=== PATIENT | male | born 1945 | race Caucasian/White ===

== ENCOUNTER 2018-01-10 15:33 | Observation (INO) | payer OTHER ==
[~2018-01-10] VITALS: Ht 182.9 cm; Wt 69.3 kg
[~2018-01-10 15:33] MED LIST: Aspirin EC325 MG PO; Micro-K10 MEQ; Prilosec Otc20 MG
[2018-01-10 15:48] LABS: BASOPHILS ABSOLUTE AUTO 0.04 K/mm3 (0.00-0.23); BASOPHILS PERCENT AUTO 1 % (0-2); EOSINOPHILS ABSOLUTE AUTO 0.22 K/mm3 (0.00-0.68); EOSINOPHILS PERCENT AUTO 3 % (0-6); Hematocrit 42.4 % (37.0-53.0); Hemoglobin 14.4 g/dL (13.5-17.5); IMMATURE GRAN ABSOLUTE AUTO 0.02 K/mm3 (0.00-0.10); IMMATURE GRAN PERCENT AUTO 0 % (0-1); LYMPHOCYTES ABSOLUTE AUTO 1.42 K/mm3 (0.84-5.20); LYMPHOCYTES PERCENT AUTO 17 % (21-46); MONOCYTES ABSOLUTE AUTO 0.57 K/mm3 (0.16-1.47); MONOCYTES PERCENT AUTO 7 % (4-13); Mean Corpuscular HGB 31.1 pg (26.0-34.0); Mean Corpuscular Volume 92 fL (80-100); Mean Platelet Volume 8.3 fL (9.1-12.4); NEUTROPHILS ABSOLUTE AUTO 6.24 K/mm3 (1.96-9.15); NEUTROPHILS PERCENT AUTO 73 % (41-73); Platelet Count 351 K/mm3 (150-400); RDW Coefficient Variation 12.5 % (11.7-14.2); RDW Standard Deviation 41.7 fL (35.1-46.3); Red Blood Cell Count 4.63 M/mm3 (4.30-5.90); White Blood Cell Count 8.51 K/mm3 (4.00-11.30)
[2018-01-10 16:03] LABS: Alanine Aminotransfer (ALT/SGP 18 U/L (12-78); Albumin, Blood 3.3 g/dL (3.4-5.0); Albumin/Globulin Ratio 0.8 (0.8-1.8); Alk Phos 134 U/L (50-136); Anion Gap 7 mmol/L (6-16); Aspartate Aminotrans (AST/SGOT 20 U/L (12-37); Bilirubin, Total 0.2 mg/dL (0.1-1.0); Blood Urea Nitrogen 13 mg/dL (8-24); Bun/Creatinine Ratio 17.4 (12.0-20.0); CO2, Blood 27 mmol/L (21-32); Calcium, Blood 8.8 mg/dL (8.5-10.1); Chloride, Blood 105 mmol/L (98-108); Creatinine, Blood 0.75 mg/dL (0.60-1.20); Globulin, Blood 4.4 g/dL (2.2-4.0); Glomerular Filtration Rate >60 (60-); Glucose, Blood 183 mg/dL (70-99); International Normalized Ratio 1.01; Potassium, Blood 3.9 mmol/L (3.5-5.5); Prothrombin Time Results 10.4 Sec (9.7-11.5); Sodium, Blood 139 mmol/L (136-145); Total Protein, Blood 7.7 g/dL (6.4-8.2)
[2018-01-10] MEDS ORDERED: ASCO500 PO (17:25)
[2018-01-11] MEDS ORDERED: ATOR40TA PO (11:56)
[2018-01-11] MEDS ORDERED: CLOP75 PO (11:57)
[2018-01-11] MEDS ORDERED: CHLO25B PO (11:57)
== END 2018-01-11 12:47 | disposition home or self-care (01) ==
LOC: ER 15:33 → MEDS 15:34 → ENPENDDIS 01-11 11:33 → MEDS 01-11 12:47
PROVIDERS: Emergency Medicine
DX: I63.9 Cerebral infarction, unspecified (principal); G45.9 Transient cerebral ischemic attack, unspecified; I10 Essential (primary) hypertension; F19.10 Other psychoactive substance abuse, uncomplicated; Z79.82 Long term (current) use of aspirin; Z79.899 Other long term (current) drug therapy
CPT/HCPCS: 36415; 70450; 80053; 82947; 85025; 85610; 93005; 93010; 93306; 93880; 96372; 97162; 97530; 99285-25; G0378; G8978; G8979; G8980; J1650

== ENCOUNTER 2018-12-18 18:47 | Inpatient (IN) | payer OTHER ==
[~2018-12-18] VITALS: Ht 182.9 cm; Wt 63.6 kg
[~2018-12-18 18:47] MED LIST changes: +ASCO500 PO; +ATOR40TA PO; +CHLO25B PO; +CLOP75 PO
[2018-12-18 19:14] LABS: BASOPHILS ABSOLUTE AUTO 0.04 K/mm3 (0.00-0.23); BASOPHILS PERCENT AUTO 0 % (0-2); EOSINOPHILS PERCENT AUTO 3 % (0-6); Hematocrit 42.7 % (37.0-53.0); Hemoglobin 14.8 g/dL (13.5-17.5); IMMATURE GRAN ABSOLUTE AUTO 0.03 K/mm3 (0.00-0.10); IMMATURE GRAN PERCENT AUTO 0 % (0-1); LYMPHOCYTES ABSOLUTE AUTO 2.46 K/mm3 (0.84-5.20); LYMPHOCYTES PERCENT AUTO 25 % (21-46); MONOCYTES ABSOLUTE AUTO 1.07 K/mm3 (0.16-1.47); MONOCYTES PERCENT AUTO 11 % (4-13); Mean Corpuscular HGB Conc 34.7 g/dL (31.5-36.5); Mean Corpuscular Volume 92 fL (80-100); Mean Platelet Volume 8.5 fL (9.1-12.4); NEUTROPHILS ABSOLUTE AUTO 6.16 K/mm3 (1.96-9.15); NEUTROPHILS PERCENT AUTO 61 % (41-73); Platelet Count 353 K/mm3 (150-400); RDW Coefficient Variation 12.2 % (11.7-14.2); RDW Standard Deviation 41.7 fL (35.1-46.3); Red Blood Cell Count 4.62 M/mm3 (4.30-5.90); White Blood Cell Count 10.06 K/mm3 (4.00-11.30)
[2018-12-18 19:30] LABS: International Normalized Ratio 1.03; Prothrombin Time Results 10.9 Sec (9.7-11.5)
[2018-12-18] MEDS ORDERED: Citalopram HBr10 MG PO (19:41)
[2018-12-18] MEDS ORDERED: HEARTBURN RELI150 M1 PO (19:42)
[2018-12-18 19:44] LABS: Alanine Aminotransfer (ALT/SGP 23 U/L (12-78); Albumin, Blood 3.1 g/dL (3.4-5.0); Albumin/Globulin Ratio 0.6 (0.8-1.8); Alk Phos 118 U/L (50-136); Anion Gap 9 mmol/L (6-16); Aspartate Aminotrans (AST/SGOT 21 U/L (12-37); Bilirubin, Total 0.4 mg/dL (0.1-1.0); Blood Urea Nitrogen 31 mg/dL (8-24); Bun/Creatinine Ratio 42.3 (12.0-20.0); CO2, Blood 29 mmol/L (21-32); CPK Creatine Kinase 62 U/L (39-308); Chloride, Blood 98 mmol/L (98-108); Creatinine, Blood 0.73 mg/dL (0.60-1.20); Free Thyroxine 0.82 ng/dL (0.70-1.60); Globulin, Blood 4.8 g/dL (2.2-4.0); Glomerular Filtration Rate >60 (60-); Glucose, Blood 119 mg/dL (70-99); Magnesium, Blood 1.9 mg/dL (1.6-2.4); Potassium, Blood 3.2 mmol/L (3.5-5.5); Sodium, Blood 136 mmol/L (136-145); Total Protein, Blood 7.9 g/dL (6.4-8.2); Troponin I <0.015 ng/mL (0.000-0.040)
[2018-12-18 19:59] LABS: Creatine Kinase MB <1.0 ng/mL (0.0-3.6); Creatine Kinase MB Index Unable to Calculate (0.0-4.0)
[2018-12-18] MEDS ORDERED: ALBU90OI61 INH (20:53)
[2018-12-18] MEDS ORDERED: POTCHL20ER PO (21:38)
[2018-12-18] MEDS ORDERED: THERA1 EACH PO (21:38)
[2018-12-19 04:57] LABS: Hematocrit 39.2 % (37.0-53.0); Hemoglobin 13.6 g/dL (13.5-17.5); Mean Corpuscular HGB 31.3 pg (26.0-34.0); Mean Corpuscular HGB Conc 34.7 g/dL (31.5-36.5); Mean Corpuscular Volume 90 fL (80-100); Mean Platelet Volume 8.6 fL (9.1-12.4); Platelet Count 339 K/mm3 (150-400); RDW Coefficient Variation 12.1 % (11.7-14.2); RDW Standard Deviation 39.9 fL (35.1-46.3); Red Blood Cell Count 4.35 M/mm3 (4.30-5.90); White Blood Cell Count 9.14 K/mm3 (4.00-11.30)
[2018-12-19 05:18] LABS: Alanine Aminotransfer (ALT/SGP 20 U/L (12-78); Albumin/Globulin Ratio 0.7 (0.8-1.8); Alk Phos 105 U/L (50-136); Anion Gap 6 mmol/L (6-16); Aspartate Aminotrans (AST/SGOT 14 U/L (12-37); Bilirubin, Total 0.3 mg/dL (0.1-1.0); Blood Urea Nitrogen 29 mg/dL (8-24); Bun/Creatinine Ratio 39.1 (12.0-20.0); CO2, Blood 32 mmol/L (21-32); Calcium, Blood 8.9 mg/dL (8.5-10.1); Chloride, Blood 102 mmol/L (98-108); Creatinine, Blood 0.74 mg/dL (0.60-1.20); Globulin, Blood 4.2 g/dL (2.2-4.0); Glomerular Filtration Rate >60 (60-); Glucose, Blood 91 mg/dL (70-99); Potassium, Blood 3.4 mmol/L (3.5-5.5); Sodium, Blood 140 mmol/L (136-145); Total Protein, Blood 7.2 g/dL (6.4-8.2)
--- NOTE | 2018-12-19 06:00 | NUR ---
PT ANGRY WITH STAFF, THREATENING TO GO AMA BECAUSE HE IS NPO. PT HAS BEEN NPO SINCE MIDNIGHT, AND WAS GIVEN 2 PUDDINGS, 2 JELL-O'S, AND A SANDWICH AT 2300 BEFORE GOING INTO NPO STATUS. EDUCATED THE PT ON THE PURPOSE OF NPO STATUS, PT IS RESISTFUL AND "DOES NOT CARE". PT STATES, "IM GOING TO LEAVE THIS PLACE SO I CAN GET FOOD". EDUCATED PT THAT THIS IS VERY HIGH RISK CONSIDERING HE HAS A HIGH GRADE AV BLOCK. PT STILL INSISTS HE "DOES NOT CARE".
--- NOTE | 2018-12-19 06:13 | NUR ---
SHIFT SUMMARY & TRANSFER NOTE PT NEW ED ADMIT EARLIER TONIGHT. 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 PER RECORDS, PT CONVERTED TO NSR WHILE TRANSFERRING ON THE GURNEY. PT DENIES ANY CHEST PAIN, SOB, DISCOMFORT. PT ARRIVES TO UNIT VIA STRETCHER AND AMBULATES SBA TO BED, PT DOES REPORT FEELING DIZZY DURING THAT TIME. TELE IN PLACE, PT HAS BEEN SINUS MILLIE IN 50s. LS CLEAR, DENIES SOB, DENIES PAIN. TROPONINS NEGATIVE. PT UPSET ABOUT BEING NPO STATUS AND THREATENS TO LEAVE AMA. HOWEVER, PT IS RESTING IN BED AT THIS TIME c CALL LT IN REACH. WILL CONT TO MONITOR ND PROVIDE CARE UNTIL PRESUMED BY ONCOMING RN.
--- NOTE | 2018-12-19 06:53 | NUR ---
DR BURNETT AT BEDSIDE DISCUSSING PLAN c PT.
[2018-12-19 10:28] LABS: Source, Urine Clean Catch
[2018-12-19 10:31] LABS: Bilirubin, Urine Neg (Neg); Blood, Urine 2+ (Neg); Glucose Qualitative, Urine Neg (Neg); Ketones, Urine Neg (Neg); Leukocyte Esterase, Urine Neg (Neg); Nitrite, Urine Neg (Neg); Protein, Urine Neg (Neg); Specific Gravity, Urine 1.015 (1.003-1.022); Urobilinogen, Urine NORM (Normal)
[2018-12-19 10:46] LABS: Appearance, Urine Clear (Clear); Color, Urine Yellow (P-Yellow)
[2018-12-19 10:47] LABS: White Blood Cells, Urine Not Seen /hpf (0-5)
[2018-12-19 10:48] LABS: Bacteria Not Seen /hpf; Mucus Light (0-Heavy); Squamous Epithelial Cells Not Seen /hpf (Few)
--- NOTE | 2018-12-19 19:34 | NUR ---
RECEIVED CALL FROM DR LONG, REPORTS OF PNEUMOTHORAX PER RADIOLOGY, UPDATED DR LONG ON PT STATUS, VSS, NO S/SX OF DISTRESS NOTED. DR LONG TO ORDER CHEST XRAY. NOTIFIED DR CATALAN, WOULD LIKE AN UPDATED ONCE REPORT IS IN. REPROT GIVEN TO ONCOMING RN.
--- NOTE | 2018-12-19 19:52 | NUR ---
TRANSFER NOTE/ SHIFT SUMMARY RECEIVED REPORT FROM NITIN MEJIA RN ON MED UNIT. BEDSIDE REPORT FROM JAMIE PALOMO FROM [facility]. PT TO ROOM AT 1840. PT ORIENTED TO ROOM AND CALL LIGHT. PT EDUCATED ON FALL RISK AND USING CALL LIGHT. PT EDUCATED ON POST PACEMAKER PLACEMENT ARM RESTRICTIONS. PT A&Ox4. IRRITABLE BUT COOPERATIVE WITH CARE. PT REQUESTING FOOD SOON HE GETS TO THE ROOM. PT DENIES PAIN, CHEST PAIN, SOB, DIZZINESS, N/V AT TIME. SPO2 >95% ON RA, LS DIM T/O. BREATHING EVEN AND UNLABORED. LEFT CHEST SITE C/D/I, NO SIGNS OF BLEEING OR HEMATOMA. VSS. REPORT GIVEN TO ONCOMING RN.
--- NOTE | 2018-12-19 21:31 | NUR ---
EVENT NOTE CALLED DR. LAND PER CONSULT ORDER FOR CHEST TUBE PLACEMENT. RECEIVED ORDERS FOR OXYGEN AND REPEAT CHEST XRAY IN THE AM. WILL CALL URGENTLY DURING THE NIGHT IF PT EXPERIENCES DYSPNEA, INCREASING CHEST PAIN, OR DESATURATION. NO ACUTE CONCERNS AT THIS TIME.
--- NOTE | 2018-12-20 05:55 | NUR ---
shift summary: Patient had pain medication x1 this shift for incisional pain per patient. Patient fell had x1 episode post pain medication of diaphoresis, dizzy sensation and lower BP. Symptoms cleared after an hour and patient slept well, pain well controlled. Patient remains asymptomatic in regard to the left sided pneumothorax and will have follow up X-ray this a.m. for DR. Nazario. VSS, call light within reach, bed low and locked with exit alarm on.
--- NOTE | 2018-12-20 11:57 | NUR ---
DR LAND AT BEDSIDE PLACING CHEST TUBE.
--- NOTE | 2018-12-20 18:21 | NUR ---
SHIFT [facility] PT A&Ox4. IRRITABLE BUT COOPERATIVE WITH CARE. PT ANXIOUS AT TIMES. PT IRRITABLE WITH STAFF AFTER [facility] DISCUSSED PNEUMOTHORAX, DR MARTÍNEZ, DR CATALAN AND DR MARTÍNEZ EDUCATED PT ON PNEUMOTHOARX AND TREATMENTS. THIS RN EDUCATED PT ON TREATMENTS AND RISK OF INVASIVE PROCEDURES. PT RESTING IN BED T/O SHIFT, UP TO SIDE OF BED TO USE URINAL. PT REPORTS PAIN TO LEFT CHEST, PACEMAKER SITE AND CHEST TUBE PLACED, NOTIFIED DR MARTÍNEZ OF PT REQUEST OF 1/2 DOSE OF PAIN MEDICATIONS, NEW ORDERS ENTERED, MEDICATED x1 WITH NORCO. PT DENIES SOB, ON 2L O2 VIA NC >95%, O2 FOR PNEUMOTHORAX PLACED LAST NIGHT PER DR LAND ORDERS. LS CONTINUE TO BE DIMINISHED TO LEFT SIDE. BREATHIGN REMAINS EVEN AND UNLABORED. LEFT ANTERIOR CHEST TUBE PLACED AT BEDSIDE THIS AFTERNOON BY DR LAND. MINIMAL SANGINOUS DRAINAGE IN TUBING. CONNECTED TO SUCTION PER ORDERS. NO CREPATOUS NOTED ON ASSESSMENT. PT RECEIVED FINAL DOSE OF IV ANTIBIOTICS THIS AM. VSS. NO OTHER ACUTE CHAGNES NOTED DURING SHIFT. WILL CONTINUE TO MONITOR UNITL REPORT GIVEN TO ONCOMING RN.
[2018-12-21 04:16] LABS: Anion Gap 5 mmol/L (6-16); Blood Urea Nitrogen 18 mg/dL (8-24); Bun/Creatinine Ratio 25.4 (12.0-20.0); CO2, Blood 31 mmol/L (21-32); Calcium, Blood 8.7 mg/dL (8.5-10.1); Chloride, Blood 100 mmol/L (98-108); Creatinine, Blood 0.71 mg/dL (0.60-1.20); Glomerular Filtration Rate >60 (60-); Glucose, Blood 124 mg/dL (70-99); Potassium, Blood 3.5 mmol/L (3.5-5.5); Sodium, Blood 136 mmol/L (136-145)
--- NOTE | 2018-12-21 05:06 | NUR ---
SHIFT SUMMARY: PATIENT HAD PAIN MED X1 (SEE MAR), VSS, GOOD URINE OUTPUT, CHEST TUBE REMAINS TO LOW WALL SUCTION. NO OTHER ISSUES NOTED, CALL LIGHT WITHIN REACH, BED LOW AND LOCKED WITH EXIT ALARM ON.
--- NOTE | 2018-12-21 08:22 | NUR ---
pt laying in bed with eyes closed, visitor in room, pt wakes when spoke to, a/ox3, pleasant and cooperative with care, follows commands well, states pain is ok, lungs are clear dim in bases, resp even and unlabored, no cough noted, chest tube to anterior left chest wall, is turned to water seal at this time, hrr, tele in place running occ paced, no edema noted, ppp+2, cap refill <3sec, vs stable, afebrile, iv site is clear and patent, bt x4, abd flat soft nontender, voids without diff, skin has wound to lcw with pressure dressing in place for pacer, and chest tube distal to that, jake villalpando, call light in reach.
--- NOTE | 2018-12-21 14:56 | NUR ---
DR. LAND HAS REMOVED CHEST TUBE AND OK TO GO HOME, DR. LINO WAS NOTIFIED, AND WROTE DISCHARGE ORDERS. IV REMOVED INTACT, WENT OVER DISCHARGE INSTRUCTIONS WITH PT AND FAMILY THEY VERBALIZED UNDERSTANDING, HE HAS AN ARM SLING IN PLACE, HE HAS HIS APPTS FOR F/U, ALL PAPER WORK, AND ALL HIS BELONGINGS. LEFT VIA WHEELCHAIR WITH DIRECTOR DIABETES IN ATTENDENCE, CALL LIGHT IN REACH.
== END 2018-12-21 15:07 | disposition home or self-care (01) | DRG 243 ==
LOC: ER 18:47 → MEDS 18:48 → ER 20:36 → MEDS 21:30 → PCU 12-19 09:42 → MEDS 12-19 09:42 → PCU 12-19 15:48
PROVIDERS: Emergency Medicine; Hospitalist; ADMIT Internal Medicine
PROC: 0JH606Z Insertion of Pacemaker, Dual Chamber into Chest Subcutaneous Tissue and Fascia, Open Approach (ICD-10-PCS; principal; 2018-12-19)
PROC: 02HK3JZ Insertion of Pacemaker Lead into Right Ventricle, Percutaneous Approach (ICD-10-PCS; 2018-12-19)
PROC: 0W9B30Z Drainage of Left Pleural Cavity with Drainage Device, Percutaneous Approach (ICD-10-PCS; 2018-12-20)
DX: I44.2 Atrioventricular block, complete (principal); E46 Unspecified protein-calorie malnutrition; J93.83 Other pneumothorax; E86.0 Dehydration; E87.6 Hypokalemia; I10 Essential (primary) hypertension; K21.9 Gastro-esophageal reflux disease without esophagitis; E78.5 Hyperlipidemia, unspecified; F32.9 Major depressive disorder, single episode, unspecified; F41.9 Anxiety disorder, unspecified; I95.9 Hypotension, unspecified; E88.09 Other disorders of plasma-protein metabolism, not elsewhere classified; F17.210 Nicotine dependence, cigarettes, uncomplicated; Z86.73 Personal history of transient ischemic attack (TIA), and cerebral infarction without residual deficits; Z85.46 Personal history of malignant neoplasm of prostate; Z92.3 Personal history of irradiation; Z79.02 Long term (current) use of antithrombotics/antiplatelets; Z79.899 Other long term (current) drug therapy; Z68.21 Body mass index [BMI] 21.0-21.9, adult
CPT/HCPCS: 32551; 33208; 36415; 71045; 76937; 80048; 80053; 81001; 82550; 82553; 83735; 84439; 84443; 84484; 85025; 85027; 85610; 85730; 93005; 93010; 93306; 96361; 96372; 99152; 99153; 99285-25; A9270-GY; C1785; C1898; G0378; G0480; J0360; J0690; J1644; J1650; J2250; J3010; J7030; J7040; Q9967

== ENCOUNTER 2019-02-13 07:52 | Emergency (ER) | payer OTHER ==
[~2019-02-13] VITALS: Ht 182.9 cm; Wt 70.3 kg
[~2019-02-13 07:52] MED LIST changes: +ALBU90OI61 INH; +Citalopram HBr10 MG PO; +HEARTBURN RELI150 M1 PO; +POTCHL20ER PO; +THERA1 EACH PO
[2019-02-13] MEDS ORDERED: Keflex500 MG PO (08:52)
== END 2019-02-13 09:05 | disposition home or self-care (01) ==
LOC: ER 07:52
DX: L03.116 Cellulitis of left lower limb (principal); L03.115 Cellulitis of right lower limb; Z79.899 Other long term (current) drug therapy; Z86.73 Personal history of transient ischemic attack (TIA), and cerebral infarction without residual deficits; F17.210 Nicotine dependence, cigarettes, uncomplicated
CPT/HCPCS: 99282

== ENCOUNTER 2019-02-17 12:33 | Emergency (ER) | payer OTHER ==
[~2019-02-17] VITALS: Ht 182.9 cm; Wt 72.6 kg
[~2019-02-17 12:33] MED LIST changes: +Keflex500 MG PO
[2019-02-17 13:21] LABS: BASOPHILS ABSOLUTE AUTO 0.05 K/mm3 (0.00-0.23); BASOPHILS PERCENT AUTO 1 % (0-2); EOSINOPHILS ABSOLUTE AUTO 0.37 K/mm3 (0.00-0.68); EOSINOPHILS PERCENT AUTO 4 % (0-6); Hematocrit 41.5 % (37.0-53.0); Hemoglobin 14.2 g/dL (13.5-17.5); IMMATURE GRAN ABSOLUTE AUTO 0.03 K/mm3 (0.00-0.10); IMMATURE GRAN PERCENT AUTO 0 % (0-1); LYMPHOCYTES ABSOLUTE AUTO 1.14 K/mm3 (0.84-5.20); LYMPHOCYTES PERCENT AUTO 13 % (21-46); MONOCYTES ABSOLUTE AUTO 0.69 K/mm3 (0.16-1.47); MONOCYTES PERCENT AUTO 8 % (4-13); Mean Corpuscular HGB 32.1 pg (26.0-34.0); Mean Corpuscular HGB Conc 34.2 g/dL (31.5-36.5); Mean Corpuscular Volume 94 fL (80-100); Mean Platelet Volume 8.3 fL (9.1-12.4); NEUTROPHILS ABSOLUTE AUTO 6.68 K/mm3 (1.96-9.15); NEUTROPHILS PERCENT AUTO 75 % (41-73); Platelet Count 402 K/mm3 (150-400); RDW Coefficient Variation 11.9 % (11.7-14.2); RDW Standard Deviation 41.5 fL (35.1-46.3); Red Blood Cell Count 4.43 M/mm3 (4.30-5.90); White Blood Cell Count 8.96 K/mm3 (4.00-11.30)
[2019-02-17 13:34] LABS: Alanine Aminotransfer (ALT/SGP 23 U/L (12-78); Albumin, Blood 3.1 g/dL (3.4-5.0); Albumin/Globulin Ratio 0.6 (0.8-1.8); Alk Phos 136 U/L (50-136); Anion Gap 5 mmol/L (6-16); Aspartate Aminotrans (AST/SGOT 13 U/L (12-37); Bilirubin, Total 0.5 mg/dL (0.1-1.0); Blood Urea Nitrogen 17 mg/dL (8-24); Bun/Creatinine Ratio 20.6 (12.0-20.0); CO2, Blood 33 mmol/L (21-32); Calcium, Blood 9.3 mg/dL (8.5-10.1); Chloride, Blood 98 mmol/L (98-108); Creatinine, Blood 0.82 mg/dL (0.60-1.20); Globulin, Blood 5.2 g/dL (2.2-4.0); Glomerular Filtration Rate >60 (60-); Glucose, Blood 120 mg/dL (70-99); Potassium, Blood 3.9 mmol/L (3.5-5.5); Sodium, Blood 136 mmol/L (136-145); Total Protein, Blood 8.3 g/dL (6.4-8.2); Troponin I <0.015 ng/mL (0.000-0.040)
== END 2019-02-17 15:02 | disposition home or self-care (01) ==
LOC: ER 12:33
PROVIDERS: Physician Assistant
DX: R55 Syncope and collapse (principal); Z79.899 Other long term (current) drug therapy; Z86.73 Personal history of transient ischemic attack (TIA), and cerebral infarction without residual deficits; K21.9 Gastro-esophageal reflux disease without esophagitis; I10 Essential (primary) hypertension; E78.5 Hyperlipidemia, unspecified; F17.210 Nicotine dependence, cigarettes, uncomplicated; Z85.51 Personal history of malignant neoplasm of bladder
CPT/HCPCS: 71045; 80053; 84484; 85025; 93005; 93010; 93280; 96360; 99285-25; J7120

== ENCOUNTER 2024-12-25 09:04 | Day surgery (SDC) | payer OTHER ==
[~2024-12-25] VITALS: Ht 185.4 cm; Wt 77.6 kg
[~2024-12-25 09:04] MED LIST changes: +ASPI81CH PO; +Amlodipine Bes2.5 MG PO; +ELIQUIS5 M2 PO; +FAMO20 PO; +METO25ER PO; +PROAIR DIGIHAL90 MCG INH; +Triamcinolone A15 G3 TOP
[2024-12-25 09:34] VITALS: BP 151/70
[2024-12-25] MEDS ORDERED: Midazolam HCl 1MG / ML 2ML Vial ONE (10:52)
[2024-12-25] MEDS ORDERED: FentaNYL Citrate 50 MCG/ML 2 ML Injection ONE (10:53)
[2024-12-25] MEDS ORDERED: NS 1,000 ML IV ONE ×2 (10:53→11:02)
[2024-12-25] MEDS ORDERED: Heparin Sodium 1000 Units/ML 10ML MDV ONE ×2 (10:53→11:02)
[2024-12-25] MEDS ORDERED: NS 250 ML IV ONE (11:02)
[2024-12-25] MEDS ORDERED: Nitroglycerin 2 MG/20 ML BTL ONE (11:03)
[2024-12-25 12:50] VITALS: BP 148/69
[2024-12-25 13:00] VITALS: BP 174/71
[2024-12-25 13:15] VITALS: BP 166/64
[2024-12-25 13:30] VITALS: BP 165/74
[2024-12-25 14:00] VITALS: BP 189/54
--- NOTE | 2024-12-25 14:16 | NUR ---
PT STANDING AT BEDSIDE. NEG BLEEDING OR SWELLING R GROIN AREA.
--- NOTE | 2024-12-25 14:49 | NUR ---
VERBAL AND WRITTEN DISCHARGE INSTRUCTIONS GIVEN TO PATIENT AND PT'S SON WITH CLEAR UNDERSTANDING. LEFT GROIN SITE REMAINS STABLE WITHOUT CHANGE. PATIENT DC'D HOME IN STABLE CONDITION IN CARE OF SON AT 1445. PT ESCORTED OUT VIA WHEELCHAIR.
== END 2024-12-25 16:01 | disposition home or self-care (01) ==
LOC: MHTC 09:04
DX: I70.223 Atherosclerosis of native arteries of extremities with rest pain, bilateral legs (principal); I65.23 Occlusion and stenosis of bilateral carotid arteries; I10 Essential (primary) hypertension; K21.9 Gastro-esophageal reflux disease without esophagitis; I48.0 Paroxysmal atrial fibrillation; F17.210 Nicotine dependence, cigarettes, uncomplicated; Z86.73 Personal history of transient ischemic attack (TIA), and cerebral infarction without residual deficits; Z79.01 Long term (current) use of anticoagulants; Z79.899 Other long term (current) drug therapy; Z95.0 Presence of cardiac pacemaker
CPT/HCPCS: 75625; 75716; 75774; 76937; 99152; 99153; C1725; C1760; C1769; C1887; C1894; C9764; J1644; J2250; J3010; J7030; J7050; Q9967

== ENCOUNTER 2025-01-08 08:07 | Day surgery (SDC) | payer OTHER ==
[~2025-01-08] VITALS: Ht 185.4 cm; Wt 77.6 kg
[2025-01-08] VITALS (10 sets, daily range): BP systolic 151–183; BP diastolic 60–79
[2025-01-08] MEDS ORDERED: NS 250 ML IV ONE (10:35)
[2025-01-08] MEDS ORDERED: Heparin Sodium 1000 Units/ML 10ML MDV ONE ×2 (10:35→12:06)
[2025-01-08] MEDS ORDERED: NS 1,000 ML IV ONE ×2 (10:36→10:50)
[2025-01-08] MEDS ORDERED: Nitroglycerin 2 MG/20 ML BTL ONE (10:36)
[2025-01-08] MEDS ORDERED: Midazolam HCl 1MG / ML 2ML Vial ONE (11:08)
[2025-01-08] MEDS ORDERED: FentaNYL Citrate 50 MCG/ML 2 ML Injection ONE (11:09)
--- NOTE | 2025-01-08 12:58 | NUR ---
PT BACK TO RECOVERY FROM LAB. PT RESTING W/ EYES CLOSED. FEMORAL SITE SOFT AND NON-TENDER PER PT. NO BLEEDING NOTED.
--- NOTE | 2025-01-08 13:56 | NUR ---
GROIN SITE SOFT AND NON-TENDER PER PT. NO BLEEDING/HEMATOMA NOTED. PT SITTING UP DRINKING SODA.
--- NOTE | 2025-01-08 14:49 | NUR ---
GROIN SITE SOFT AND NON-TENDER PER PT. NO BLEEDING/HEMATOMA NOTED.
--- NOTE | 2025-01-08 15:28 | NUR ---
PT GIVEN DC INSTRUCTIONS AND VERBALIZED UNDERSTANDING. IV OUT. PT CHANGED. GROIN SITE SOFT AND NON-TENDER PER PT. NO BLEEING/HEMATOMA NOTED. BILAT DP AND PT PULSES PRESENT. PT TAKEN TO [facility] VIA WC BY ARNOLD AYALA. PT TO BE TAKEN HOME BY SON, DEVYN.
== END 2025-01-08 15:37 | disposition home or self-care (01) ==
LOC: MHTC 08:07
DX: I70.223 Atherosclerosis of native arteries of extremities with rest pain, bilateral legs (principal); I65.23 Occlusion and stenosis of bilateral carotid arteries; I10 Essential (primary) hypertension; K21.9 Gastro-esophageal reflux disease without esophagitis; I48.0 Paroxysmal atrial fibrillation; F17.210 Nicotine dependence, cigarettes, uncomplicated; Z86.73 Personal history of transient ischemic attack (TIA), and cerebral infarction without residual deficits; Z79.899 Other long term (current) drug therapy; Z95.0 Presence of cardiac pacemaker
CPT/HCPCS: 75625; 75716; 75774; 76937; 85347; 99152; 99153; C1725; C1760; C1769; C1887; C1894; C2623; C9764; J1644; J2250; J3010; J7030; J7050; Q9967

== ENCOUNTER 2025-03-08 21:03 | Emergency (ER) | payer OTHER | END 2025-03-09 01:07 | disposition short-term general hospital (02) | LOC: ER 21:03 | DX: I60.4 Nontraumatic subarachnoid hemorrhage from basilar artery (principal); G91.4 Hydrocephalus in diseases classified elsewhere; K21.9 Gastro-esophageal reflux disease without esophagitis; I10 Essential (primary) hypertension; E78.5 Hyperlipidemia, unspecified; Z79.899 Other long term (current) drug therapy; Z88.8 Allergy status to other drugs, medicaments and biological substances; F17.210 Nicotine dependence, cigarettes, uncomplicated ==